=== PATIENT | female | born 1945 | race Caucasian/White ===

== ENCOUNTER → 2017-09-04 11:41 | Outpatient (CLI) | payer MEDICARE, SELFPAY ==
[2017-09-04 12:02] LABS: Basophils % 0.4 % (0.1-2.0); Eosinophils # 0.1 K/mm3 (0.0-0.4); Eosinophils % 1.3 % (0.1-12.0); Hemoglobin 12.6 g/dL (12.2-16.2); Lymphocytes # 1.7 K/mm3 (0.7-4.5); Lymphocytes % 29.6 K/mm3 (10-50); Mean Corpuscular HGB Conc 33.3 g/dL (31.8-35.4); Mean Corpuscular Volume 90.2 fl (81-99); Monocytes # 0.2 K/mm3 (0.1-1.0); Monocytes % 4.4 % (1.7-9.3); Neutrophils # 3.6 K/mm3 (1.8-7.8); Neutrophils % 64.3 % (37.0-80.0); Platelet Count 268 K/mm3 (142-424); Red Blood Count 4.21 M/mm3 (4.20-5.40); Red Cell Distribution Width 13.3 % (11.5-17.5); White Blood Count 5.6 K/mm3 (4.8-10.8)
[2017-09-04 15:07] LABS: Alanine Aminotransferase 26 U/L (12-78); Albumin Level 3.9 gm/dL (3.4-5.0); Albumin/Globulin Ratio 1.3 (1.1-1.8); Alkaline Phosphatase 103 U/L (46-116); Anion Gap 14.1 mEq/L (5-15); Aspartate Amino Transferase 25 U/L (15-37); Bilirubin,Total 1.3 mg/dL (0.2-1.0); Blood Urea Nitrogen 18 mg/dL (7-18); Calcium 9.7 mg/dL (8.5-10.1); Carbon Dioxide 27 mmol/L (21.0-32.0); Chloride 105 mmol/L (98-107); Chol/HDL Ratio 4.3 (1-3.5); Cholesterol 244 mg/dL (140-200); Creatinine,Serum 1.17 mg/dL (0.55-1.02); Estimated Glomerular Filt Rate 46 ml/min (>60); GFR (African American) 55 ML/MIN (>60); Globulin 3.1 gm/dl (1.3-3.2); Glucose 90 mg/dL (74-106); HDL Cholesterol 57 mg/dL (29-89); LDL Cholesterol 159 mg/dL (0-130); Potassium 4.1 mmoL/L (3.5-5.1); Sodium 142 mmol/L (136-145); Triglycerides 140 mg/dL (30-200); VLDL Cholesterol 28 mg/dL (0-40)
== END ==
PROVIDERS: Visit Provider Internal Medicine Adolescent Medicine
DX: E55.9 Vitamin D deficiency, unspecified (principal); E78.5 Hyperlipidemia, unspecified
CPT/HCPCS: 36415; 80053; 80061; 82652; 85025

== ENCOUNTER → 2018-02-17 11:42 | Outpatient (CLI) | payer MEDICARE, SELFPAY ==
[2018-02-17 12:36] LABS: Basophils % 0.5 % (0.1-2.0); Eosinophils # 0.1 K/mm3 (0.0-0.4); Eosinophils % 1.3 % (0.1-12.0); Hematocrit 39.8 % (37.0-47.0); Lymphocytes # 1.4 K/mm3 (0.7-4.5); Lymphocytes % 24.3 K/mm3 (10-50); Mean Corpuscular HGB Conc 32.6 g/dL (31.8-35.4); Mean Platelet Volume 7.8 fl (7.4-10.4); Monocytes # 0.3 K/mm3 (0.1-1.0); Monocytes % 5.2 % (1.7-9.3); Neutrophils % 68.7 % (37.0-80.0); Platelet Count 270 K/mm3 (142-424); Red Blood Count 4.33 M/mm3 (4.20-5.40); Red Cell Distribution Width 13.6 % (11.5-17.5); White Blood Count 5.8 K/mm3 (4.8-10.8)
[2018-02-17 14:16] LABS: Alanine Aminotransferase 27 U/L (12-78); Albumin Level 3.8 gm/dL (3.4-5.0); Albumin/Globulin Ratio 1.2 (1.1-1.8); Alkaline Phosphatase 106 U/L (46-116); Amylase 56 U/L (25-125); Aspartate Amino Transferase 21 U/L (15-37); Bilirubin,Total 1.3 mg/dL (0.2-1.0); Blood Urea Nitrogen 17 mg/dL (7-18); Calcium 9.7 mg/dL (8.5-10.1); Carbon Dioxide 29 mmol/L (21.0-32.0); Chloride 104 mmol/L (98-107); Chol/HDL Ratio 3.9 (1-3.5); Cholesterol 227 mg/dL (140-200); Creatinine,Serum 1.22 mg/dL (0.55-1.02); Estimated Glomerular Filt Rate 43 ml/min (>60); GFR (African American) 52 ML/MIN (>60); Globulin 3.2 gm/dl (1.3-3.2); Glucose 89 mg/dL (74-106); HDL Cholesterol 58 mg/dL (29-89); LDL Cholesterol 145 mg/dL (0-130); Sodium 139 mmol/L (136-145); Triglycerides 122 mg/dL (30-200); VLDL Cholesterol 24 mg/dL (0-40)
== END ==
PROVIDERS: PCP Internal Medicine Adolescent Medicine; Visit Provider Internal Medicine Adolescent Medicine
DX: E78.5 Hyperlipidemia, unspecified (principal); E55.9 Vitamin D deficiency, unspecified; Z87.19 Personal history of other diseases of the digestive system
CPT/HCPCS: 36415; 80053; 80061; 82150; 82652; 85025

== ENCOUNTER → 2018-09-26 12:00 | Outpatient (CLI) | payer MEDICARE, SELFPAY ==
[2018-09-26 12:41] LABS: Basophils % 0.3 % (0.1-2.0); Eosinophils % 0.7 % (0.1-12.0); Hematocrit 38.6 % (37.0-47.0); Hemoglobin 12.9 g/dL (12.2-16.2); Lymphocytes # 1.6 K/mm3 (0.7-4.5); Mean Corpuscular HGB Conc 33.5 g/dL (31.8-35.4); Mean Corpuscular Hemoglobin 29.9 pg (27.0-31.2); Mean Corpuscular Volume 89.2 fl (81-99); Mean Platelet Volume 8.2 fl (7.4-10.4); Monocytes # 0.3 K/mm3 (0.1-1.0); Monocytes % 4.6 % (1.7-9.3); Neutrophils % 67.4 % (37.0-80.0); Platelet Count 257 K/mm3 (142-424); Red Blood Count 4.33 M/mm3 (4.20-5.40); Red Cell Distribution Width 13.3 % (11.5-17.5); White Blood Count 5.9 K/mm3 (4.8-10.8)
[2018-09-26 13:22] LABS: Alanine Aminotransferase 32 U/L (12-78); Albumin Level 3.7 gm/dL (3.4-5.0); Albumin/Globulin Ratio 1.3 (1.1-1.8); Alkaline Phosphatase 113 U/L (46-116); Aspartate Amino Transferase 22 U/L (15-37); Bilirubin,Total 1.4 mg/dL (0.2-1.0); Blood Urea Nitrogen 15 mg/dL (7-18); Calcium 9.5 mg/dL (8.5-10.1); Carbon Dioxide 27 mmol/L (21.0-32.0); Chloride 102 mmol/L (98-107); Chol/HDL Ratio 2.6 (1-3.5); Cholesterol 149 mg/dL (140-200); Creatinine,Serum 1.23 mg/dL (0.55-1.02); Estimated Glomerular Filt Rate 43 ml/min (>60); GFR (African American) 52 ML/MIN (>60); Globulin 2.9 gm/dl (1.3-3.2); Glucose 95 mg/dL (74-106); HDL Cholesterol 57 mg/dL (29-89); LDL Cholesterol 69 mg/dL (0-130); Sodium 140 mmol/L (136-145); Total Protein,Serum 6.6 gm/dL (6.4-8.2); Triglycerides 113 mg/dL (30-200); VLDL Cholesterol 23 mg/dL (0-40)
[2018-09-28 17:25] LABS: Vitamin D 25 Hydroxy 45.2 ng/mL (30.0-100.0)
== END ==
PROVIDERS: Visit Provider Internal Medicine Adolescent Medicine
DX: E78.5 Hyperlipidemia, unspecified (principal); E55.9 Vitamin D deficiency, unspecified
CPT/HCPCS: 36415; 80053; 80061; 82652; 85025

== ENCOUNTER → 2019-01-23 12:15 | Outpatient (CLI) | payer MEDICARE, OTHER, SELFPAY ==
[2019-01-23 13:06] LABS: Basophils % 0.3 % (0.1-2.0); Eosinophils # 0.1 K/mm3 (0.0-0.4); Eosinophils % 1.1 % (0.1-12.0); Hematocrit 38.3 % (37.0-47.0); Lymphocytes # 1.7 K/mm3 (0.7-4.5); Lymphocytes % 27.6 % (10-50); Mean Corpuscular HGB Conc 33.9 g/dL (31.8-35.4); Mean Corpuscular Hemoglobin 31.1 pg (27.0-31.2); Mean Corpuscular Volume 91.7 fl (81-99); Mean Platelet Volume 8.5 fl (7.4-10.4); Monocytes # 0.3 K/mm3 (0.1-1.0); Monocytes % 5.5 % (1.7-9.3); Neutrophils % 65.5 % (37.0-80.0); Platelet Count 228 K/mm3 (142-424); Red Blood Count 4.18 M/mm3 (4.20-5.40); Red Cell Distribution Width 13.5 % (11.5-17.5); White Blood Count 6.2 K/mm3 (4.8-10.8)
[2019-01-23 13:47] LABS: Alanine Aminotransferase 25 U/L (12-78); Albumin Level 3.8 gm/dL (3.4-5.0); Albumin/Globulin Ratio 1.2 (1.1-1.8); Alkaline Phosphatase 101 U/L (46-116); Anion Gap 14.1 mEq/L (5-15); Aspartate Amino Transferase 31 U/L (15-37); Bilirubin,Total 1.2 mg/dL (0.2-1.0); Blood Urea Nitrogen 21 mg/dL (7-18); Calcium 9.8 mg/dL (8.5-10.1); Carbon Dioxide 26 mmol/L (21.0-32.0); Chloride 99 mmol/L (98-107); Chol/HDL Ratio 2.6 (1-3.5); Cholesterol 165 mg/dL (140-200); Creatinine,Serum 1.23 mg/dL (0.55-1.02); Estimated Glomerular Filt Rate 43 ml/min (>60); GFR (African American) 52 ML/MIN (>60); Globulin 3.2 gm/dl (1.3-3.2); Glucose 93 mg/dL (74-106); HDL Cholesterol 63 mg/dL (29-89); LDL Cholesterol 79 mg/dL (0-130); Potassium 4.1 mmoL/L (3.5-5.1); Sodium 135 mmol/L (136-145); Triglycerides 117 mg/dL (30-200); VLDL Cholesterol 23 mg/dL (0-40)
[2019-01-26 14:23] LABS: Vitamin D 25 Hydroxy 42.4 ng/mL (30.0-100.0)
== END ==
PROVIDERS: Visit Provider Internal Medicine Adolescent Medicine
DX: E78.5 Hyperlipidemia, unspecified (principal); E55.9 Vitamin D deficiency, unspecified
CPT/HCPCS: 36415; 80053; 80061; 82652; 85025

== ENCOUNTER 2019-02-17 08:17 | Inpatient (IN) ==
--- NOTE | 2019-02-17 08:33 | Emergency Department Note ---
ED Disposition Clinical Impression: Closed left hip fracture Qualifiers: Encounter type: initial encounter Qualified Code(s): S72.002A - Fracture of unspecified part of neck of left femur, initial encounter for closed fracture Disposition: Admitted As Inpatient Condition on Discharge: Fair - Critical Care Critical Care Time: No Attestation: On , the high probability of a clinically significant, sudden or life threatening deterioration of the following system(s) required my full and direct attention, intervention and personal management. The time I documented below is in addition to time spent performing reported procedures but includes the following listed in this critical care notation. Medical Decision Making - Scotty Inquiry Pt receiving controlled substance: Yes Scotty was queried for this patient: No Reason not queried -: Emergent pt cond-no time Risks and benefits of using a controlled substance: were not discussed with pt by me Vital Signs: 02/17/19 08:18 02/17/19 09:37 02/17/19 10:00 Temperature 98.1 F Temperature Source Oral Pulse Rate Pulse Rate [Right Brachial] 72 98 H Respiratory Rate 18 Blood Pressure Blood Pressure [Right Arm] 168/106 H 154/99 H Blood Pressure Mean [Right Arm] 126 117 Blood Pressure Source [Right Arm] Automatic Cuff Blood Pressure Position [Right Arm] Sitting 02 Sat by Pulse Oximetry 99 94 L Oxygen Delivery Method Room Air Room Air 02/17/19 10:07 02/17/19 10:09 Temperature 98.4 F 98.1 F Temperature Source Oral Oral Pulse Rate 97 H Pulse Rate [Right Brachial] 95 H Respiratory Rate 19 20 Blood Pressure 154/99 H Blood Pressure [Right Arm] 152/94 H Blood Pressure Mean [Right Arm] 113 Blood Pressure Source [Right Arm] Automatic Cuff Blood Pressure Position [Right Arm] Supine 02 Sat by Pulse Oximetry 94 L Oxygen Delivery Method Room Air Room Air - Lab Data Lab Results 02/17/19 08:37: WBC 10.2, RBC 4.78, Hgb 13.9, Hct 45.4, MCV 95.0, MCH 29.1, MCHC 30.7 L, RDW 14.3, Plt Count 287, MPV 8.5, Neut % (Auto) 80.3 H, Lymph % (Auto) 14.0, [place] % (Auto) 4.3, Eos % (Auto) 1.1, Baso % (Auto) 0.3, Neut # (Auto) 8.2 H, Lymph # (Auto) 1.4, [place] # (Auto) 0.4, Eos # (Auto) 0.1, Baso # (Auto) 0.0 02/17/19 08:37: Sodium 137, Potassium 3.9, Chloride 101, Carbon Dioxide 29, Anion Gap 10.9, BUN 13, Creatinine 1.20 H, Estimated Creat Clear 55, Estimated GFR 44 L, Est GFR ( Amer) 53 L, Glucose 104, Calcium 9.8, Total Bilirubin 1.2 H, AST 22, ALT 21, Alkaline Phosphatase 112, Total Protein 7.5, Albumin 3.9, Globulin 3.6 H, Albumin/Globulin Ratio 1.1 02/17/19 09:31: Urine Color Yellow, Urine Appearance Clear, Urine pH 7.5, Ur Specific [place] 1.015, Urine Protein Negative, Urine Glucose (UA) Negative, Urine Ketones Negative, Urine Blood Negative, Urine Nitrate Negative, Urine Bilirubin Negative, Urine Urobilinogen 0.2, Ur Leukocyte Esterase Negative, Urine RBC 5-10, Urine WBC 3-5, Ur Squamous Epith Cells 3-5, Urine Bacteria 1+ Result diagrams: 02/17/19 08:37 02/17/19 08:37 Orders (Tests/Meds): ED MEDICATIONS Generic Name Dose Route Start Last Admin Trade Name Rut PRN Reason Stop Dose Admin Hydrocodone Bitart/Acetaminophen 1 tab 02/17/19 14:56 02/17/19 15:41 Andrews 5/325mg Tablet PO 03/19/19 14:55 1 tab Q4HP PRN Administration Moderate to Severe Pain Enoxaparin Sodium 40 mg 02/18/19 09:00 Lovenox 40mg/0.4ml Syringe SQ 03/20/19 08:59 DAILY MIHAI Hydromorphone HCl 1 mg 02/17/19 09:39 02/17/19 16:38 Dilaudid 2mg/Ml Syringe IV 03/19/19 09:38 1 mg Q4HP PRN Administration Severe Pain Sodium Chloride 1,000 mls @ 75 mls/hr 02/17/19 09:39 02/17/19 20:14 Sod Chlor 0.9% 1000ml Bag IV 03/19/19 09:38 75 mls/hr .[id number] MIHAI Administration Cefazolin Sodium 1 gm/ Sodium 50 mls @ 100 mls/hr 02/17/19 20:00 02/17/19 20:08 Chloride IV 02/18/19 02:29 100 mls/hr Q6H MIHAI Administration Protocol Ondansetron HCl 4 mg 02/17/19 09:39 Zofran 4mg/2ml Vial IV 03/19/19 09:38 Q8HP PRN Nausea Sodium Chloride 10 ml 02/17/19 09:39 Saline Flush 10ml Syringe IV 03/19/19 09:38 NEEDED PRN Maintain IV Site Discontinued Medications Generic Name Dose Route Start Last Admin Trade Name Freq PRN Reason Stop Dose Admin Hydromorphone HCl 1 mg 02/17/19 09:37 02/17/19 09:39 Dilaudid 2mg/Ml Syringe IV 02/17/19 09:38 1 mg ONCE ONE Administration Cefazolin Sodium 1 gm/ Sodium 50 mls @ 100 mls/hr 02/17/19 10:57 02/17/19 12:00 Chloride IV 02/17/19 11:26 100 mls/hr PREOP ONE Administration Protocol Meperidine HCl 25 mg 02/17/19 14:47 Meperidine 25mg/Ml 1ml Syringe IV 02/17/19 16:47 Q5MINP PRN Shivering Morphine Sulfate 4 mg 02/17/19 09:00 02/17/19 09:00 Morphine 4mg/Ml Syringe IV 02/17/19 09:01 4 mg ONCE ONE Administration Ondansetron HCl 4 mg 02/17/19 09:00 02/17/19 09:00 Zofran 4mg/2ml Vial IV 02/17/19 09:01 4 mg ONCE ONE Administration ORDERS Category Date Time Status Consult to Orthopedic Surgery [CONS] Stat Cons 02/17/19 09:39 Ordered - Radiology Data #1 Image(s): Chest, Hip, Femur Image Reviewed: Yes I reviewed the patient's radiology image, Yes I have reviewed radiologist's interpretation Hip: Angulated intertrochanteric fracture. Femur: No other femur fractures identified. Chest: Per radiologist, questionable developing right apical nodule versus summation artifact. PA and lateral chest recommended when able. - ECG Data Tracing #1 EKG interpreted by Phil Richardson MD: Rhythm: sinus Rate: 90 Whitt: normal Ectopy: none Conduction: Right bundle branch block ST Segment Changes: none T Wave Changes: none Q Waves: Inferior and lateral No evidence of acute ischemia or injury - Physician Consults Physician Consulted: Chinmay Time: 09:08 Reason -: Admission Comment/Response: Agrees to admit the patient to the hospital. We discussed the patient's clinical information, including history, exam, laboratory and radiology results and ED course. Per hospital procedure, I will write temporary bridge inpatient orders on the patient. Specific orders requested by the admitting physician: Per orthopedics Additional Consult: Neeru Time: 09:24 Reason -: Orthopedic Eval/Care Comment/Response: NPO. Will do surgery later this afternoon. Admit. General Adult HPI - General Chief complaint: Fall Stated complaint: FALL WITH LEFT HIP INJURY Time Seen by Provider: 02/17/19 08:33 Mode of Arrival: EMS Limitations: No Limitations Description of Symptoms (Recalled from ER Triage Doc. by RN): FALL WITH INJURY TO LEFT FEMUR; PT STATES HER HIP IS PAINFUL BUT NOT BAD HER THIGH - History of Present Illness HPI narrative: Brought in by ambulance for a left hip injury. States that she missed the bottom step this morning causing her to fall and injure her left hip. When she moves her left lower extremity pain radiates up the inside of her left thigh. She denies any other injuries including head injury, neck injury, chest or abdominal injury. No loss of consciousness. Last po - cup of coffee this morning. - Related Data Home Medications Medication Instructions Recorded Confirmed Lisinopril/Hydrochlorothiazide 1 each PO DAILY 02/17/19 02/17/19 [Lisinopril-Hctz 20-12.5 mg Tab] Allergies Allergy/AdvReac Type Severity Reaction Status Date / Time NSAIDS (Non-Steroidal AdvReac Verified 02/17/19 11:10 Anti-Inflamma CORTISONE Allergy Intermediate Rash Uncoded 02/17/19 10:10 [facility] History - Hepatitis A Screen Drug use history?: No High risk sexual behaviors?: No History of sexually transmitted infection?: No Currently employed?: No Childcare worker?: No Do you have indoor plumbing?: Yes Do you have electricity?: Yes Attestation statement:: This patient has been screened for Hepatitis A risk factors. I have reviewed the patient's past medical history: Yes Medical History: Reports:: Cancer (right kidney (nephrectomy), right eye (removed, has prosthetic eye)), Hypertension ROS Obtained: Yes All systems reviewed & no additional complaints - Constitutional Constitutional: Denies fever(s) - Eyes Eyes: Reports as per HPI - Cardiovascular Cardiovascular: Denies chest pain - Respiratory Respiratory: No dyspnea - Gastrointestinal Gastrointestingal: Denies: abdominal pain, vomiting - Musculoskeletal Musculoskeletal: Reports joint pain (left hip) - Neurologic Neurologic: Denies numbness, Denies weakness Physical Exam - General General appearance: alert, in no apparent distress - Head Head exam: atraumatic, normocephalic - Eye Eye exam: Present: other (right eye prosthesis) - ENT ENT exam: Present: mucous membranes moist - Neck Neck exam: Present: normal inspection, trachea midline - Chest Chest inspection: Present: normal inspection, symmetric chest wall rise - Respiratory Respiratory exam: Present: normal lung sounds bilaterally. Absent: respiratory distress - Cardiovascular Cardiovascular exam: Present: regular rate, normal rhythm, normal heart sounds - Abdominal Exam Abdominal exam: Present: soft, normal bowel sounds. Absent: distention - Extremities Exam Extremities exam: Present: normal capillary refill - Neurological Exam Neurological exam: Present: alert, oriented X3 - Psychiatric Psychiatric exam: Present: normal affect, normal mood - Skin Skin exam: Present: warm, dry - Other Other exam information: Laying on right side for x-rays. No obvious deformity. Left hip tenderness. Normal pedal pulses, capillary refill, sensation, and movement of toes.
[2019-02-17 08:50] LABS: Basophils % 0.3 % (0.1-2.0); Eosinophils # 0.1 K/mm3 (0.0-0.4); Eosinophils % 1.1 % (0.1-12.0); Hematocrit 45.4 % (37.0-47.0); Hemoglobin 13.9 g/dL (12.2-16.2); Lymphocytes # 1.4 K/mm3 (0.7-4.5); Mean Corpuscular HGB Conc 30.7 g/dL (31.8-35.4); Mean Platelet Volume 8.5 fl (7.4-10.4); Monocytes # 0.4 K/mm3 (0.1-1.0); Monocytes % 4.3 % (1.7-9.3); Neutrophils # 8.2 K/mm3 (1.8-7.8); Neutrophils % 80.3 % (37.0-80.0); Platelet Count 287 K/mm3 (142-424); Red Blood Count 4.78 M/mm3 (4.20-5.40); Red Cell Distribution Width 14.3 % (11.5-17.5); White Blood Count 10.2 K/mm3 (4.8-10.8)
[2019-02-17 09:07] LABS: Albumin Level 3.9 gm/dL (3.4-5.0); Albumin/Globulin Ratio 1.1 (1.1-1.8); Anion Gap 10.9 mEq/L (5-15); Bilirubin,Total 1.2 mg/dL (0.2-1.0); Calcium 9.8 mg/dL (8.5-10.1); Globulin 3.6 gm/dl (1.3-3.2); Total Protein,Serum 7.5 gm/dL (6.4-8.2)
--- NOTE | 2019-02-17 09:25 | History & Physical Report ---
*Admission Date: 02/17/19 *Chief complaint: fall, hip pain *History of present illness: 73-year-old female with history of hypertension, nephrectomy x1, globectomy x1 who was walking at home early this morning and fell after missing a step. She reports it was dark at home and she missed the last step because she did not see it. She fell landing on her left side and had immediate onset of pain. Denies hitting her head, loss of consciousness, confusion. No chest pain or shortness of breath. Was brought to the ER emergently and found to have a closed left hip fracture. Orthopedics was consulted and patient was taken to the OR for surgical fixation this afternoon. Patient otherwise is independent for ADLs and at her baseline level of health. Family in the room on interview, updated of plan. [facility] History I have reviewed the patient's past medical history: Yes Medical History: Reports:: Cancer (right kidney (nephrectomy), right eye (removed, has prosthetic eye)), Hypertension *Have you ever received a pneumonia vaccine?: No *Have you received a flu vaccine this season?: No - *Social History *Occupational Status:: retired *Travel in the last 8 weeks: None Family Hx:: Hypertension Review of Systems - Review of Systems Review of systems:: pertinent systems reviewed and negative unless documented below - *Neurologic Denies numbness, Denies weakness Meds Home Medications Medication Instructions Recorded Confirmed Type Lisinopril/Hydrochlorothiazide 1 each PO DAILY 02/17/19 02/17/19 History [Lisinopril-Hctz 20-12.5 mg Tab] Allergies Allergy/AdvReac Type Severity Reaction Status Date / Time NSAIDS (Non-Steroidal AdvReac Verified 02/17/19 11:10 Anti-Inflamma CORTISONE Allergy Intermediate Rash Uncoded 02/17/19 10:10 Exam Vital signs and Labs for Last 24 Hours: Temp Pulse Resp BP Pulse Ox 98.1 F 72 18 168/106 H 99 02/17/19 08:18 02/17/19 08:18 02/17/19 08:18 02/17/19 08:18 02/17/19 08:18 Laboratory Results - last 24 hr 02/17/19 08:37: WBC 10.2, RBC 4.78, Hgb 13.9, Hct 45.4, MCV 95.0, MCH 29.1, MCHC 30.7 L, RDW 14.3, Plt Count 287, MPV 8.5, Neut % (Auto) 80.3 H, Lymph % (Auto) 14.0, [place] % (Auto) 4.3, Eos % (Auto) 1.1, Baso % (Auto) 0.3, Neut # (Auto) 8.2 H, Lymph # (Auto) 1.4, [place] # (Auto) 0.4, Eos # (Auto) 0.1, Baso # (Auto) 0.0 02/17/19 08:37: Sodium 137, Potassium 3.9, Chloride 101, Carbon Dioxide 29, Anion Gap 10.9, BUN 13, Creatinine 1.20 H, Estimated Creat Clear 55, Estimated GFR 44 L, Est GFR ( Amer) 53 L, Glucose 104, Calcium 9.8, Total Bilirubin 1.2 H, AST 22, ALT 21, Alkaline Phosphatase 112, Total Protein 7.5, Albumin 3.9, Globulin 3.6 H, Albumin/Globulin Ratio 1.1 I & O for Last 24 hours: Intake & Output 02/14/19 02/15/19 02/16/19 02/17/19 23:59 23:59 23:59 23:59 Weight 83.915 kg - Constitutional no acute distress, obese Comments: elderly - *Routine HEENT Exam Head: Present: normocephalic Eye: Present: EOMI (In left eye, right eye absent), PERRL ENT: Present: mucous membranes moist - *Routine Neck Exam Present: supple. Absent: lymphadenopathy - *Routine Respiratory Exam Present: CTA bilaterally - *Routine Cardiovascular Exam Present: RRR - *Routine Abdominal Exam Present: soft, normoactive bowel sounds. Absent: tenderness - *Routine Extremities Exam Absent: cyanosis, clubbing, edema Comments: Surgical site clean dry and intact with no blood or drainage on bandage. Tender to palpation along surgical wound neurovascularly intact distal to incision - *Routine Skin Exam Present: warm. Absent: rash - *Routine Neurological Exam Present: alert, oriented X3 Assessment and Plan (1) Hypertension Current visit: Yes Status: Chronic Qualifiers: Hypertension type: secondary to other renal disorders Qualified Code(s): I15.1 - Hypertension secondary to other renal disorders; N28.89 - Other specified disorders of kidney and ureter Category: Medical Code(s): I10 - Essential (primary) hypertension Patient has only one kidney. Is hypertensive and on DELL inhibitor at home. Will hold in the perioperative setting. As needed treatment with carvedilol or clonidine in the perioperative setting if blood pressure consistently greater than 180/100. (2) History of nephrectomy Current visit: Yes Status: Chronic Category: Surgical Code(s): Z90.5 - Acquired absence of kidney Status post removal of right kidney many years ago. Has chronic kidney disease stage III with single left kidney. Caution with nephrotoxins. Will monitor kidney function closely while admitted. (3) Closed left hip fracture Current visit: Yes Status: Acute Qualifiers: Encounter type: initial encounter Qualified Code(s): S72.002A - Fracture of unspecified part of neck of left femur, initial encounter for closed fracture Category: Medical Code(s): S72.002A - Fracture of unspecified part of neck of left femur, initial encounter for closed fracture Patient found to have left hip fracture on admission. At this time she has no CKD with creatinine greater than 2, no history of dialysis, no CAD, does not have diabetes or need for insulin. Is otherwise functional and able to ambulate independently without chest pain. Patient's RCRI is 0. METs greater than 4. Hold DELL inhibitor in perioperative setting. Otherwise patient optimized for surgical fixation of left hip fracture. We will plan for postop DVT prophylaxis with Lovenox initially and plan to transition to oral agent either high dose aspirin or NOAC at time of discharge for 6 weeks of DVT prophylaxis (4) CKD (chronic kidney disease), stage III Current visit: Yes Status: Chronic Category: Medical Code(s): N18.3 - Chronic kidney disease, stage 3 (moderate) Suspect secondary to hypertension and single kidney. - Assessment and plan all Dx Assessment and Plan for all problems:: 73-year-old female with CKD 3 who presented with left hip fracture. Surgically fixed by orthopedics already. Tolerated procedure well. Plan for resumption of home medications for blood pressure. Will monitor kidney function given that she has a single kidney and chronic kidney disease 3. Caution with anti- inflammatories and nephrotoxic's due to potential for kidney injury. We will proceed with Lovenox 40 mg daily for DVT prophylaxis with transition to oral treatment at time of discharge. Pain control with oxycodone for now, de- escalate when appropriate.
[2019-02-17 09:38] LABS: Microscopic, Urine URINE MICROSCOPIC (MICROSCOPIC)
--- NOTE | 2019-02-17 09:43 | Pharmacy Consult Notes ---
[facility] Pharmacy VTE Monitoring - Patient Demographics Admission date: 02/17/19 Report Date: 02/17/19 Time: 09:43 Allergies/Adverse Reactions: Patient Allergies CORTISONE Allergy (Unknown, Uncoded 04/23/17 15:08) Height: 1.73 m Weight: 83.915 kg Patient Problems: Current Active Problems Closed left hip fracture (Acute) Hypertension (Chronic) History of nephrectomy (Chronic) CKD (chronic kidney disease), stage III (Chronic) - VTE Risk Labs: VTE Related Lab Results Hgb 13.9 g/dL (12.2-16.2) 02/17/19 08:37 Hct 45.4 % (37.0-47.0) 02/17/19 08:37 Plt Count 287 K/mm3 (142-424) 02/17/19 08:37 BUN 13 mg/dL (7-18) 02/17/19 08:37 Creatinine 1.20 mg/dL (0.55-1.02) H 02/17/19 08:37 Estimated Creat Clear 55 mL/min (50-200) 02/17/19 08:37 - Prophylaxis VTE Prophylaxis Ordered?: Yes Types of VTE Prophylaxis: TEDS Knee High Location of Applied Device: Bilateral Lower Extremeties - VTE Diagnosis Confirmed Treatment or plan recommended: Continue Current Treatment
[2019-02-17 09:44] LABS: Appearance,Urine CLEAR (Clear); Bilirubin,Urine Negative (Negative); Blood, Urine Negative (Negative); Color,Urine YELLOW (Yellow); Glucose,Urine (UA) Negative (Negative); Ketones,Urine Negative (Negative); Leukocyte Esterase,Urine Negative (Negative); PH,Urine 7.5 (5.0-8.5); Protein,Urine Negative (Negative); Specific Gravity, Urine 1.015 (1.005-1.030); Urobilinogen,Urine 0.2 EU/dl (0.2)
[2019-02-17 10:07] LABS: Bacteria,Urine 1+ /lpf
--- NOTE | 2019-02-17 11:09 | Consult Report ---
*Admission Date: 02/17/19 *Reason for consult:: L hip fracture *History of present illness: 73yo F admitted through the ER after a fall earlier this morning at home. She was getting ready to leave the house to go to [place] to see a friend in the hospital, when she missed a step and fell to the ground. She had immediate pain in the left hip and was unable to ambulate. X-rays reveal an intertrochanteric femur fracture. She denies previous injury to or surgery on this hip. 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 No reported shortness of breath or chest pain prior to fall, no dizziness, no LOC. She lives at home with her in a one-level home but there are stairs to enter the home. A ramp is in the process of being built. Review of Systems - Review of Systems Review of systems:: pertinent systems reviewed and negative unless documented below - *Neurologic Denies numbness, Denies weakness [facility] History I have reviewed the patient's past medical history: Yes Medical History: Reports:: Cancer (right kidney (nephrectomy), right eye (removed, has prosthetic eye)), Hypertension Denies:: Diabetes Mellitus Type 2 *Have you ever received a pneumonia vaccine?: Yes *Have you received a flu vaccine this season?: Yes Other Surgeries: Yes: Cholecystectomy - *Social History Smoking Status: Never smoker Alcohol Intake: never *Occupational Status:: retired Housing: house *Travel in the last 8 weeks: None Family Hx:: Cancer, Diabetes, Heart Attack, Hypertension, Stroke Meds Home Medications Medication Instructions Recorded Confirmed Type Lisinopril/Hydrochlorothiazide 1 each PO DAILY 02/17/19 02/17/19 History [Lisinopril-Hctz 20-12.5 mg Tab] Allergies Allergy/AdvReac Type Severity Reaction Status Date / Time CORTISONE Allergy Intermediate Rash Uncoded 02/17/19 10:10 Exam Vital signs and Labs for Last 24 Hours: Temp Pulse Resp BP Pulse Ox 98.1 F 97 H 20 154/99 H 94 L 02/17/19 10:09 02/17/19 10:09 02/17/19 10:09 02/17/19 10:09 02/17/19 10:07 Laboratory Results - last 24 hr 02/17/19 08:37: WBC 10.2, RBC 4.78, Hgb 13.9, Hct 45.4, MCV 95.0, MCH 29.1, MCHC 30.7 L, RDW 14.3, Plt Count 287, MPV 8.5, Neut % (Auto) 80.3 H, Lymph % (Auto) 14.0, [place] % (Auto) 4.3, Eos % (Auto) 1.1, Baso % (Auto) 0.3, Neut # (Auto) 8.2 H, Lymph # (Auto) 1.4, [place] # (Auto) 0.4, Eos # (Auto) 0.1, Baso # (Auto) 0.0 02/17/19 08:37: Sodium 137, Potassium 3.9, Chloride 101, Carbon Dioxide 29, Anion Gap 10.9, BUN 13, Creatinine 1.20 H, Estimated Creat Clear 55, Estimated GFR 44 L, Est GFR ( Amer) 53 L, Glucose 104, Calcium 9.8, Total Bilirubin 1.2 H, AST 22, ALT 21, Alkaline Phosphatase 112, Total Protein 7.5, Albumin 3.9, Globulin 3.6 H, Albumin/Globulin Ratio 1.1 02/17/19 09:31: Urine Color Yellow, Urine Appearance Clear, Urine pH 7.5, Ur Specific [place] 1.015, Urine Protein Negative, Urine Glucose (UA) Negative, Urine Ketones Negative, Urine Blood Negative, Urine Nitrate Negative, Urine Bilirubin Negative, Urine Urobilinogen 0.2, Ur Leukocyte Esterase Negative, Urine RBC 5-10, Urine WBC 3-5, Ur Squamous Epith Cells 3-5, Urine Bacteria 1+ I & O for Last 24 hours: Intake & Output 02/14/19 02/15/19 02/16/19 02/17/19 11:59 11:59 11:59 11:59 Weight 169 lb 5 oz - Constitutional no acute distress, average body habitus - *Routine HEENT Exam Head: Present: normocephalic Eye: Present: implant (prosthetic R eyeball) ENT: Present: mucous membranes moist - *Routine Respiratory Exam Present: CTA bilaterally - *Routine Cardiovascular Exam Present: RRR - *Routine Abdominal Exam Present: soft. Absent: tenderness - *Routine Exam Comments: jimenez in place - *Routine Extremities Exam Comments: LLE shortened, externally rotated and adducted +DF/PF/EHL LLE SILT distally LLE in all distributions palpable pedal pulses LLE, foot warm/well-perfused BLE calves soft, non-tender moderate tenderness over L hip, no skin lesions/ecchymosis/abrasions - *Routine Skin Exam Present: intact - *Routine Neurological Exam Present: alert, oriented X3, moving all extremities, normal tone, hearing grossly intact, normal speech. Absent: sensory deficit, motor deficit, altered mental status Results - Labs Result Diagrams: 02/17/19 08:37 02/17/19 08:37 Labs: Abnormal lab results 02/17/19 02/17/19 Range/Units 08:37 08:37 MCHC 30.7 L (31.8-35.4) g/dL Neut % (Auto) 80.3 H (37.0-80.0) % Neut # (Auto) 8.2 H (1.8-7.8) K/mm3 Creatinine 1.20 H (0.55-1.02) mg/dL Estimated GFR 44 L (>60) ml/min Est GFR ( Amer) 53 L (>60) ML/MIN Total Bilirubin 1.2 H (0.2-1.0) mg/dL Globulin 3.6 H (1.3-3.2) gm/dl H & H 02/17/19 Range/Units 08:37 Hgb 13.9 (12.2-16.2) g/dL Hct 45.4 (37.0-47.0) % All other labs normal. - Diagnostic results Hip x-ray: image reviewed (left intertrochanteric femur fracture) Assessment and Plan (1) Hypertension Current visit: Yes Status: Chronic Qualifiers: Hypertension type: secondary to other renal disorders Qualified Code(s): I15.1 - Hypertension secondary to other renal disorders; N28.89 - Other specified disorders of kidney and ureter Category: Medical Code(s): I10 - Essential (primary) hypertension (2) History of nephrectomy Current visit: Yes Status: Chronic Category: Surgical Code(s): Z90.5 - Acquired absence of kidney (3) Closed left hip fracture Current visit: Yes Status: Acute Qualifiers: Encounter type: initial encounter Qualified Code(s): S72.002A - Fracture of unspecified part of neck of left femur, initial encounter for closed fracture Category: Medical Code(s): S72.002A - Fracture of unspecified part of neck of left femur, initial encounter for closed fracture (4) CKD (chronic kidney disease), stage III Current visit: Yes Status: Chronic Category: Medical Code(s): N18.3 - Chronic kidney disease, stage 3 (moderate) - Assessment and plan all Dx Assessment and Plan for all problems:: 73yo F with L intertrochanteric femur fracture -- I discussed treatment options with the patient and her family and have elected to proceed with IMN today -- patient had coffee early this morning but no solid food -- I discussed the risks of surgery with the patient, including bleeding, infection, non-union/malunion, hardware failure, persistent pain and disability, and the risk of anesthesia. The patient vocalized understanding and provided informed consent for the procedure. -- 1g ancef special effects person to OR
--- NOTE | 2019-02-17 14:46 | Progress Note ---
[facility] Anesthesia Checklist - Structural Data Admitted From: Inpatient Planned Operative Procedure/s: orif l hip Consent for Planned Operative Procedure(s) Verified: Yes - Airway Assessment C-Spine Mobility Assessed: Yes TMJ Mobility Assessed: Yes Dentition: Dentures-good fit - Neurological Assessment Level of Consciousness: Awake, Alert, Appropriate - Anesthesia Plan Anesthesia Risk discussed: Yes Anesthesia Plan: Verified ASA Class: III Anesthesia Type: MAC [facility] History I have reviewed the patient's past medical history: Yes Medical History: Reports:: Cancer (right kidney (nephrectomy), right eye (removed, has prosthetic eye)), Hypertension Denies:: Diabetes Mellitus Type 2 *Have you ever received a pneumonia vaccine?: Yes *Have you received a flu vaccine this season?: Yes Anesthesia experience/problems:: none Other Surgeries: Yes: Cholecystectomy - *Social History Smoking Status: Never smoker Alcohol Intake: never Substance Use Type: denies use *Occupational Status:: retired Housing: house *Travel in the last 8 weeks: None Family Hx:: Cancer, Diabetes, Heart Attack, Hypertension, Stroke
--- NOTE | 2019-02-17 14:47 | Progress Note ---
[facility] Anesthesia Record Part I Intake, IV Amount: 2,000 Estimated blood loss (mL): 100 Urine output (mL): 100 Blood Pressure: 119/78 SaO2: 95 Pulse Rate: 88 Respiratory Rate: 12 Temperature: 99.3 F Patient is:: Awake, Stable Stable to PACU at:: 14:40
--- NOTE | 2019-02-17 14:47 | Progress Note ---
[facility] Anesthesia Record Part II Discharge Time: 15:10 Destination: floor PACU nurse assessment reviewed?: Yes Patient Condition:: Good Anesthesia Complications:: None Swallowing reflex intact?: Yes Cyanosis?: No
--- NOTE | 2019-02-17 15:13 | Operative Note ---
Date of procedure: 02/17/19 Pre-op Diagnosis:: intertrochanteric fracture LEFT femur Post-op Diagnosis:: intertrochanteric fracture LEFT femur Procedure performed:: intramedullary nail (IMN) LEFT femur Surgeon:: Debra Siddiqi MD Student Recruiter(s):: Mary Rivera SURGICAL INSTRUMENTS INSPECTOR:: Mc Siddiqi Anesthesia: MAC, spinal Estimated blood loss (mL): 100 Clinical Note:: 73yo F admitted through the ER after a fall earlier this morning at home. She was getting ready to leave the house to go to [place] to see a friend in the hospital, when she missed a step and fell to the ground. She had immediate pain in the left hip and was unable to ambulate. X-rays reveal an intertrochanteric femur fracture. She denies previous injury to or surgery on this hip. 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 No reported shortness of breath or chest pain prior to fall, no dizziness, no LOC. She lives at home with her in a one-level home but there are stairs to enter the home. A ramp is in the process of being built. I discussed treatment options with the patient and her family and have elected to proceed with IMN today. I discussed the risks of surgery with the patient, including bleeding, infection, non-union/malunion, hardware failure, persistent pain and disability, and the risk of anesthesia. The patient vocalized understanding and provided informed consent for the procedure. Operative findings:: implants: [place] gamma nail system 11 x 180mm nail, 130 deg neck/shaft angle 10.5 x 100mm lag screw 5 x 35mm distal interlocking screw Operative note:: The patient was identified in preoperative holding and the L hip signed by myself. The patient was then taken to the operating room where spinal anesthetic administered and 1g Ancef was infused. The patient was then transferred to the fracture table and sedated intravenously for the procedure. The L leg was secured to the foot plate of the fracture table and the R leg placed in a well-padded leg [place] with the hip in flexion/abduction. Timeout was performed, identifying the correct patient, correct procedure and correct site. Next the L hip fracture was visualized under fluoro and closed reduction performed using the fracture table and a combination of hip adduction, internal rotation and longitudinal traction. Once acceptable reduction was achieved, the L hip was prepped and draped in the usual sterile fashion for a femoral intramedullary nail procedure. The procedure was begun by using a free guide pin held over the L hip to localize the level of the greater trochanter. Approximately 3cm proximal to this, a longitudinal incision was made on the lateral aspect of the hip approximately 3 cm long. The guidepin was placed over the tip of the greater trochanter and fluoroscopy used to confirm the appropriate starting point on manan th AP and lateral views. The guidepin was advanced under power into the proximal femur and a curved awl used to perforate the near cortex, creating an entry hole in the tip of the greater trochanter. A 11 x 180mm (130 degree) nail was advanced until well-seated. The appropriate drill guide was then placed through the side arm on the nail, through which to place the lag screw. A guidepin was threaded from the lateral aspect of the thigh through this drill guide and into the femoral neck. It was advanced proximally until the desired tip apex distance was met on both AP and lateral fluoro views. The measuring tool was used to determine a size 100mm lag screw was needed; the screw path was drilled and a 10.5mm diameter, 100mm long lag screw was advanced into the femoral neck and head. It appeared to be appropriately positioned on both AP and lateral x-ray. Next, the set screw was placed into the top of the nail and secured tightly. To secure the distal aspect of the nail, one distal i nterlocking screw was placed in a static position. Using the appropriate drill sleeve, and measuring off the calibrated drill bit, a 5 x 35mm screw was placed in the distal interlocking hole in the nail. This completed the procedure and the side arm was removed from the nail, final x-rays taken with confirmation of good positioning of both AP and lateral x-rays. All incisions were irrigated copiously with sterile saline and the wounds closed in a layered fashion. The fascia/IT band were closed with 0 Vicryl, followed by 2-0 Vicryl on the subcutaneous tissue, and dawson for the skin. The wounds were dressed with Xeroform, 4 x 4's and tegaderm. The patient was then transferred back to her cart and taken to PACU in good condition. There were no complications during this case. Tourniquet time (min): 0 Condition: stable Disposition: PACU Specimens:: none Complications:: none
[2019-02-18 07:41] LABS: Basophils % 0.1 % (0.1-2.0); Eosinophils # 0.1 K/mm3 (0.0-0.4); Eosinophils % 0.8 % (0.1-12.0); Hematocrit 34.8 % (37.0-47.0); Lymphocytes # 1.8 K/mm3 (0.7-4.5); Lymphocytes % 24.5 % (10-50); Mean Corpuscular HGB Conc 31.9 g/dL (31.8-35.4); Mean Platelet Volume 8.5 fl (7.4-10.4); Monocytes # 0.5 K/mm3 (0.1-1.0); Monocytes % 7.2 % (1.7-9.3); Neutrophils # 4.9 K/mm3 (1.8-7.8); Neutrophils % 67.4 % (37.0-80.0); Platelet Count 223 K/mm3 (142-424); Red Blood Count 3.74 M/mm3 (4.20-5.40); Red Cell Distribution Width 14.5 % (11.5-17.5); White Blood Count 7.2 K/mm3 (4.8-10.8)
[2019-02-18 07:53] LABS: Albumin Level 2.9 gm/dL (3.4-5.0); Albumin/Globulin Ratio 0.9 (1.1-1.8); Anion Gap 8.4 mEq/L (5-15); Bilirubin,Total 1.8 mg/dL (0.2-1.0); Globulin 3.1 gm/dl (1.3-3.2)
[2019-02-18 08:13] LABS: Calcium 8.5 mg/dL (8.5-10.1)
[2019-02-18 09:52] LABS: Hemoglobin 11.1 g/dL (12.2-16.2)
--- NOTE | 2019-02-18 11:48 | Progress Note ---
Internal Medicine - PN: Subj *Date: 02/18/19 *Time: 11:46 Interval history: Ms. Park is doing very well. He may dynamically stable. Tolerating good p.o. intake. Pain well controlled on current regimen. Was up with physical therapy on assessment this morning. Moving very slowly however participating well. Denies chest pain, numbness in her left leg, nausea, vomiting, shortness of breath. Exam Vital signs and Labs for Last 24 Hours: Temp Pulse Resp BP Pulse Ox 98.6 F 85 20 138/66 98 02/18/19 08:00 02/18/19 08:00 02/18/19 08:00 02/18/19 08:00 02/18/19 08:00 Laboratory Results - last 24 hr 02/18/19 07:30: WBC 7.2 D, RBC 3.74 L, Hgb 11.1 L D, Hct 34.8 L, MCV 93.0, MCH 29.6, MCHC 31.9, RDW 14.5, Plt Count 223, MPV 8.5, Neut % (Auto) 67.4, Lymph % (Auto) 24.5, Kerr % (Auto) 7.2, Eos % (Auto) 0.8, Baso % (Auto) 0.1, Neut # (Auto) 4.9, Lymph # (Auto) 1.8, Kerr # (Auto) 0.5, Eos # (Auto) 0.1, Baso # (Auto) 0.0 02/18/19 07:30: Sodium 134 L, Potassium 3.4 L, Chloride 100, Carbon Dioxide 29, Anion Gap 8.4, BUN 11, Creatinine 1.23 H, Estimated Creat Clear 49, Estimated GFR 43 L, Est GFR ( Amer) 52 L, Glucose 108 H, Calcium 8.5 D, Total Bilirubin 1.8 H, AST 48 H D, ALT 44 D, Alkaline Phosphatase 93, Total Protein 6.0 L, Albumin 2.9 L D, Globulin 3.1, Albumin/Globulin Ratio 0.9 L I & O for Last 24 hours: Intake & Output 02/15/19 02/16/19 02/17/19 02/18/19 23:59 23:59 23:59 23:59 Intake Total 2397 / 2397 1416 / 1416 Output Total 100 / 100 600 / 600 Balance 2297 / 2297 816 / 816 Weight 76.799 kg 76.799 kg Narrative: - Constitutional no acute distress, obese Comments: elderly - *Routine HEENT Exam Head: Present: normocephalic Eye: Present: EOMI (In left eye, right eye absent), PERRL ENT: Present: mucous membranes moist - *Routine Neck Exam Present: supple. Absent: lymphadenopathy - *Routine Respiratory Exam Present: CTA bilaterally - *Routine Cardiovascular Exam Present: RRR - *Routine Abdominal Exam Present: soft, normoactive bowel sounds. Absent: tenderness - *Routine Extremities Exam Absent: cyanosis, clubbing, edema Comments: Surgical site clean dry and intact with no blood or drainage on bandage. Tender to palpation along surgical wound neurovascularly intact distal to incision - *Routine Skin Exam Present: warm. Absent: rash - *Routine Neurological Exam Present: alert, oriented X3 Assessment and Plan (1) Hypertension Current visit: Yes Status: Chronic Qualifiers: Hypertension type: secondary to other renal disorders Qualified Code(s): I15.1 - Hypertension secondary to other renal disorders; N28.89 - Other specified disorders of kidney and ureter Category: Medical Code(s): I10 - Essential (primary) hypertension (2) History of nephrectomy Current visit: Yes Status: Chronic Category: Surgical Code(s): Z90.5 - Acquired absence of kidney (3) Closed left hip fracture Current visit: Yes Status: Acute Qualifiers: Encounter type: initial encounter Qualified Code(s): S72.002A - Fracture of unspecified part of neck of left femur, initial encounter for closed fracture Category: Medical Code(s): S72.002A - Fracture of unspecified part of neck of left femur, initial encounter for closed fracture (4) CKD (chronic kidney disease), stage III Current visit: Yes Status: Chronic Category: Medical Code(s): N18.3 - Chronic kidney disease, stage 3 (moderate) - Assessment and plan all Dx Assessment and Plan for all problems:: Overall Ms. Park is doing well. Status post surgical fixation of her left hip fracture. Pending physical therapy recommendations. Anticipate patient will do well at a SNF for rehab. Continue current pain regimen and blood pressure regimen. Will require 6 weeks of postop DVT prophylaxis, currently on Lovenox. Continues to require inpatient management pending placement referral.
--- NOTE | 2019-02-18 11:52 | Progress Note ---
Subjective Date: 02/18/19 Time: 09:00 Principal diagnosis: s/p IMN L femur for IT fx Interval history: Mrs. Pope is doing well this morning. She was out of bed in bedside chair when I saw her, had been transferred during PT evaluation. She reports pain in the hip, but 2 norco helped. Denies dizziness/lightheadedness, no chest pain or shortness of breath. PN: Obj Ex Vital signs: Temp Pulse Resp BP Pulse Ox 98.6 F 85 20 138/66 98 02/18/19 08:00 02/18/19 08:00 02/18/19 08:00 02/18/19 08:00 02/18/19 08:00 - Constitutional no acute distress - Routine HEENT Exam Head: Present: normocephalic Eye: Present: implant ENT: Present: mucous membranes moist - Routine Respiratory Exam Present: CTA bilaterally - Routine Cardiovascular Exam Present: RRR - Routine Abdominal Exam Present: soft. Absent: tenderness - Routine Extremities Exam Comments: L hip dressings c/d/i, no strikethrough +DF/PF/EHL LLE SILT distally LLE L calf soft, compressible, non-tender palpable pedal pulses LLE - Routine Skin Exam Absent: erythema, ecchymosis - Routine Neurological Exam Present: alert, oriented X3, moving all extremities, normal tone, hearing grossly intact, normal speech. Absent: sensory deficit, motor deficit, altered mental status - Urinary Catheter Management Camejo Cath placed during this visit: yes Urethral indwelling: No Insertion date: 02/17/19 Insertion time: 09:16 Progress Note: A&P (1) Hypertension Status: Chronic Current Visit: Yes (2) History of nephrectomy Status: Chronic Current Visit: Yes (3) Closed left hip fracture Status: Acute Current Visit: Yes (4) CKD (chronic kidney disease), stage III Status: Chronic Current Visit: Yes Assessment and Plan for All Diagnoses:: 73yo F POD 1 s/p IMN L femur for intertrochanteric fracture -- WBAT LLE, continue PT/OT -- dressing to be changed on POD 3 -- ice pack L hip PRN -- pain control: norco 1-2 tabs PRN with IV for breakthrough only -- DVT prophy: lovenox 40mg daily -- SCDs BLE -- encourage IS 10x/hr while awake -- dispo planning: anticipate transfer to SNF when approved
--- NOTE | 2019-02-18 18:35 | Electrocardiograph Report ---
APPROVED REPORT Exam: Resting ECG HR:90 bpm ECG Measurements Heart Rate 90 AXES OH 172 P 79 QRSd 122 QRS 73 QT 378 T57 QTc 462 <Conclusion> Normal sinus rhythm Right bundle branch block Abnormal ECG Electronically signed by : Jn Black, 02/18/2019 18:34:49
--- NOTE | 2019-02-19 08:59 | Progress Note ---
Internal Medicine - PN: Subj *Date: 02/19/19 *Time: 08:56 Interval history: 75-year-old status post left hip fracture fixation. Doing well. In bedside chair this morning. Tolerating p.o. intake. Pain controlled on current regimen. No significant complaints. Denies chest pain, shortness of breath, nausea, vomiting. Working with physical therapy. Pending placement at this time. Exam Vital signs and Labs for Last 24 Hours: Temp Pulse Resp BP Pulse Ox 98.1 F 98 H 17 151/80 H 94 L 02/19/19 08:35 02/19/19 08:35 02/19/19 08:35 02/19/19 08:35 02/19/19 08:35 Laboratory Results - last 24 hr 02/18/19 07:30: Hgb 11.1 L D I & O for Last 24 hours: Intake & Output 02/16/19 02/17/19 02/18/19 02/19/19 23:59 23:59 23:59 23:59 Intake Total 2397 / 2397 3720 / 3720 1043 / 1043 Output Total 100 / 100 1800 / 2300 500 / 500 Balance 2297 / 2297 1920 / 1420 543 / 543 Weight 76.799 kg 76.799 kg 76.799 kg Narrative: - Constitutional no acute distress, obese, in bedside chair on exam Comments: elderly - *Routine HEENT Exam Head: Present: normocephalic Eye: Present: EOMI (In left eye, right eye absent), PERRL ENT: Present: mucous membranes moist - *Routine Neck Exam Present: supple. Absent: lymphadenopathy - *Routine Respiratory Exam Present: CTA bilaterally - *Routine Cardiovascular Exam Present: RRR - *Routine Abdominal Exam Present: soft, normoactive bowel sounds. Absent: tenderness - *Routine Extremities Exam Absent: cyanosis, clubbing, edema Comments: Surgical site clean dry and intact with no blood or drainage on bandage. Tender to palpation along surgical wound neurovascularly intact distal to incision - *Routine Skin Exam Present: warm. Absent: rash - *Routine Neurological Exam Present: alert, oriented X3 Assessment and Plan (1) Hypertension Current visit: Yes Status: Chronic Qualifiers: Hypertension type: secondary to other renal disorders Qualified Code(s): I15.1 - Hypertension secondary to other renal disorders; N28.89 - Other specified disorders of kidney and ureter Category: Medical Code(s): I10 - Essential (primary) hypertension (2) History of nephrectomy Current visit: Yes Status: Chronic Category: Surgical Code(s): Z90.5 - Acquired absence of kidney (3) Closed left hip fracture Current visit: Yes Status: Acute Qualifiers: Encounter type: initial encounter Qualified Code(s): S72.002A - Fracture of unspecified part of neck of left femur, initial encounter for closed fracture Category: Medical Code(s): S72.002A - Fracture of unspecified part of neck of left femur, initial encounter for closed fracture (4) CKD (chronic kidney disease), stage III Current visit: Yes Status: Chronic Category: Medical Code(s): N18.3 - Chronic kidney disease, stage 3 (moderate) (5) Obesity (BMI 30.0-34.9) Current visit: Yes Status: Chronic Category: Medical Code(s): E66.9 - Obesity, unspecified Complicates all aspects of care - Assessment and plan all Dx Assessment and Plan for all problems:: 73-year-old status post left hip fracture. Overall patient is doing well. Working with physical therapy. Tolerating p.o. intake. Pain well controlled. Pending placement for physical therapy. Anticipate discharge tomorrow.
--- NOTE | 2019-02-19 12:06 | Progress Note ---
Subjective Date: 02/19/19 Time: 11:00 Principal diagnosis: s/p IMN L femur for IT fx Interval history: The patient is doing well this morning. Pain in L hip present but manageable with medication. Denies numbness or tingling in the LLE. Awaiting SNF placement. PN: Obj Ex Vital signs: Temp Pulse Resp BP Pulse Ox 98.0 F 97 H 17 148/82 H 96 02/19/19 11:34 02/19/19 11:34 02/19/19 11:34 02/19/19 11:34 02/19/19 11:34 - Constitutional no acute distress - Routine HEENT Exam Head: Present: normocephalic Eye: Present: implant ENT: Present: mucous membranes moist - Routine Respiratory Exam Present: CTA bilaterally - Routine Cardiovascular Exam Present: RRR - Routine Abdominal Exam Present: soft. Absent: tenderness - Routine Extremities Exam Comments: L hip dressings c/d/i, no strikethrough +DF/PF/EHL LLE SILT distally LLE L calf soft, compressible, non-tender palpable pedal pulses LLE - Routine Neurological Exam Present: alert, oriented X3, moving all extremities, normal tone, hearing grossly intact, normal speech. Absent: sensory deficit, motor deficit, altered mental status - Urinary Catheter Management Camejo Cath placed during this visit: yes Urethral indwelling: No Insertion date: 02/17/19 Insertion time: 09:16 Progress Note: A&P (1) Hypertension Status: Chronic Current Visit: Yes (2) History of nephrectomy Status: Chronic Current Visit: Yes (3) Closed left hip fracture Status: Acute Current Visit: Yes (4) CKD (chronic kidney disease), stage III Status: Chronic Current Visit: Yes (5) Obesity (BMI 30.0-34.9) Status: Chronic Current Visit: Yes Assessment and Plan for All Diagnoses:: 73yo F POD 2 s/p IMN L femur for intertrochanteric fracture -- WBAT LLE, continue PT/OT -- dressing to be changed tomorrow -- ice pack L hip PRN -- pain control: norco 1-2 tabs PRN with IV for breakthrough only -- DVT prophy: lovenox 40mg daily -- SCDs BLE -- encourage IS 10x/hr while awake -- dispo planning: transfer to SNF when approved; likely tomorrow
--- NOTE | 2019-02-19 22:47 | Discharge Summary ---
General - General Admission date:: 02/17/19 Discharge date: 02/20/19 HPI HPI: 73-year-old female with history of hypertension, nephrectomy x1, globectomy x1 who was walking at home early this morning and fell after missing a step. She reports it was dark at home and she missed the last step because she did not see it. She fell landing on her left side and had immediate onset of pain. Denies hitting her head, loss of consciousness, confusion. No chest pain or shortness of breath. Was brought to the ER emergently and found to have a closed left hip fracture. Orthopedics was consulted and patient was taken to the OR for surgical fixation this afternoon. Patient otherwise is independent for ADLs and at her baseline level of health. Family in the room on interview, updated of plan. Hospital Course Hospital Course: Admitted for comminuted left intertrochanteric fracture with varus angulation of the distal fracture fragment. Ortho consulted admit for surgical fixation. Patient's hip was fixed with good results. Has been able to ambulate with assistance and get up and work with PT. Tolerating p.o. intake. Pain controlled on PRN opiate therapy. Currently on DVT prophylaxis with Lovenox. As patient is progressing well and tolerating oral therapy and working with physical therapy, she is medically stable for discharge home. Remains hemodynamically stable without fever. Transition to Xarelto to complete 6 weeks of DVT prophylaxis. As chest pain, shortness of breath, numbness or tingling in feet. Objective Vital signs: Temp Pulse Resp BP Pulse Ox 98.4 F 95 H 18 136/77 94 L 02/19/19 20:00 02/19/19 20:00 02/19/19 20:00 02/19/19 20:00 02/19/19 20:00 Narrative: - Constitutional no acute distress, obese, in bedside chair on exam Comments: elderly - *Routine HEENT Exam Head: Present: normocephalic Eye: Present: EOMI (In left eye, right eye absent), PERRL ENT: Present: mucous membranes moist - *Routine Neck Exam Present: supple. Absent: lymphadenopathy - *Routine Respiratory Exam Present: CTA bilaterally - *Routine Cardiovascular Exam Present: RRR - *Routine Abdominal Exam Present: soft, normoactive bowel sounds. Absent: tenderness - *Routine Extremities Exam Absent: cyanosis, clubbing, edema Comments: Surgical site clean dry and intact with scant drainage on bandage most proximal. No change in tenderness to palpation along surgical wound neurovascularly intact distal to incision - *Routine Skin Exam Present: warm. Absent: rash - *Routine Neurological Exam Present: alert, oriented X3 DS: Diagnosis - Discharge Diagnosis (1) Hypertension Status: Chronic (2) History of nephrectomy Status: Chronic (3) Closed left hip fracture Status: Acute (4) CKD (chronic kidney disease), stage III Status: Chronic (5) Obesity (BMI 30.0-34.9) Status: Chronic Discharge Plan - Patient Discharge Instructions ACTIVITY: Up with assistance DIET: continue same diet Patient Instructions: Hip Fracture, DI for Hip Fracture, DI for Surgical Site Infection - Follow up Plan Disposition: [facility] Home Medications: Home Medications Medication Instructions Recorded Confirmed Type Fexofenadine HCl [Kaylee 180 mg PO DAILYP PRN 02/18/19 02/18/19 History Allergy] Lisinopril/Hydrochlorothiazide 1 each PO DAILY 02/18/19 02/18/19 History [Lisinopril-Hctz 20-25 mg Tab] Multivit-Min/Iron/Folic/Lutein 1 each PO DAILY 02/18/19 02/18/19 History [Centrum Silver Women Tablet] Hydrocod/Acet 5/325 mg [Chassell 1 - 2 tab PO Q6HP PRN 5 Days #20 02/20/19 Rx 5/325mg tablet] tab Rivaroxaban [Xarelto 10mg tablet] 10 mg PO DAILY 35 Days #35 tab 02/20/19 Rx Prescriptions/Medication Reconciliation: New Sennosides/Docusate Sodium [Senokot-S Tablet] 1 tab PO BID tablet Pantoprazole Sodium [Protonix 40mg tablet] 40 mg PO HS tablet. Rivaroxaban [Xarelto 10mg tablet] 10 mg PO DAILY 35 Days #35 tab Hydrocod/Acet 5/325 mg [Chassell 5/325mg tablet] 1 - 2 tab PO Q6HP PRN 5 Days #20 tab PRN Reason: Moderate To Severe Pain Continued Lisinopril/Hydrochlorothiazide [Lisinopril-Hctz 20-25 mg Tab] 1 each PO DAILY Fexofenadine HCl [Kaylee Allergy] 180 mg PO DAILYP PRN PRN Reason: ALLERGIES Multivit-Min/Iron/Folic/Lutein [Centrum Silver Women Tablet] 1 each PO DAILY - Problem Reconciliation Problems Reviewed?: Yes
[2019-02-20 08:50] VITALS: BP 138/69
== END 2019-02-20 11:16 | DRG 482 ==
LOC: ER 08:17 → 2ND 09:19
PROVIDERS: ADMIT Internal Medicine Adolescent Medicine; ATTEND Internal Medicine Adolescent Medicine
CPT/HCPCS: 36415; 71010; 71045; 73502; 73552; 76000; 80053; 81001; 85025; 93005; 96374; 96375; 97110; 97116; 97162; 97166; 97530; 97535; 99284; C1713; C1776; J2405

== ENCOUNTER → 2019-03-02 13:01 | Outpatient (CLI) | payer MEDICARE, OTHER, SELFPAY ==
--- NOTE | 2019-03-02 13:15 | XR_ITS ---
PROCEDURE: XR HIP LT 2-3V W/PELVIS CLINICAL INDICATION: Hip FX FU follow-up ORIF left hip fracture COMPARISON: XR HIP LT 2-3V W/PELVIS from 02/17/2019 XR HIP LT 2-3V W/PELVIS from 02/17/2019 FINDINGS: Gamma nail with intramedullary bonnie is present stabilizing the intertrochanteric fracture of the left hip with good alignment of the major fracture fragments. Comminuted lesser trochanter fracture is displaced medially. There are mild osteoarthritic changes of the hips and SI joints and facets at the lumbosacral junction IMPRESSION: Good alignment status post ORIF left hip intertrochanteric fracture Dictated by: Angelo Blevins MD 03/02/2019 14:21 Electronically signed by Angelo Blevins MD in [place] 03/02/2019 14:21
== END ==
PROVIDERS: PCP Internal Medicine Adolescent Medicine; Visit Provider Orthopaedic Surgery
DX: S72.002A Fracture of unspecified part of neck of left femur, initial encounter for closed fracture (principal)
CPT/HCPCS: 73502

== ENCOUNTER → 2019-04-06 12:57 | Outpatient (CLI) | payer MEDICARE, OTHER, SELFPAY ==
--- NOTE | 2019-04-06 13:07 | XR_ITS ---
PROCEDURE: XR HIP LT 2-3V W/PELVIS CLINICAL INDICATION: Hip Fx Follow-up hip fracture/ORIF COMPARISON: XR HIP LT 2-3V W/PELVIS from 02/17/2019 XR HIP LT 2-3V W/PELVIS from 03/02/2019 FINDINGS: Gamma nail with short intramedullary bonnie is present stabilizing the intertrochanteric fracture which is in good alignment. Lesser trochanter fragment is displaced medially as before but with decreased displacement and developing callus formation. IMPRESSION: Good alignment status post ORIF left the hip with healing fracture Dictated by: Angelo Blevins MD 04/06/2019 17:43 Electronically signed by Angelo Blevins MD in [place] 04/06/2019 17:43
== END ==
PROVIDERS: PCP Internal Medicine Adolescent Medicine; Visit Provider Orthopaedic Surgery
DX: S72.002A Fracture of unspecified part of neck of left femur, initial encounter for closed fracture (principal)
CPT/HCPCS: 73502

== ENCOUNTER → 2019-05-08 14:05 | Outpatient (CLI) | payer MEDICARE, OTHER, SELFPAY ==
--- NOTE | 2019-05-08 14:11 | XR_ITS ---
PROCEDURE: XR HIP LT 2-3V W/PELVIS CLINICAL INDICATION: Hip FX FU COMPARISON: XR HIP LT 2-3V W/PELVIS from 04/06/2019 FINDINGS: Status post ORIF left intertrochanteric fracture with gamma nail and short intramedullary bonnie. There is good alignment of the main fracture fragments with mild medial displacement of the lesser trochanter. IMPRESSION: Good alignment status post ORIF left hip fracture Dictated by: Angelo Blevins MD 05/08/2019 17:07 Electronically signed by Angelo Blevins MD in [place] 05/08/2019 17:07
== END ==
PROVIDERS: PCP Internal Medicine Adolescent Medicine; Visit Provider Orthopaedic Surgery
DX: S72.002A Fracture of unspecified part of neck of left femur, initial encounter for closed fracture (principal)
CPT/HCPCS: 73502

== ENCOUNTER → 2019-06-05 10:55 | Outpatient (CLI) | payer MEDICARE, OTHER, SELFPAY ==
--- NOTE | 2019-06-05 10:57 | MM_ITS ---
PROCEDURE: MM DIG SCREENING MAMM BI W/CAD CLINICAL INDICATION: SCREENING There is a history of breast cancer patient's maternal grandmother. COMPARISON: DMSB DIG MAMM-SCREEN TORY from 12/10/2012 DMSB DIG MAMM-SCREEN TORY from 11/11/2015 DMSB DIG MAMM-SCREEN TORY W/CAD from 11/30/2016 TECHNIQUE: Standard CC and MLO images and 3D Tomosynthesis was obtained. R2 CAD reviewed. FINDINGS: Scattered fibroglandular densities are seen throughout both breasts. There is faint arterial calcification in each breast. There are few scattered benign-appearing microcalcifications in each breast. There is no suspicious lesion and no suspicious microcalcifications. IMPRESSION: Fibrofatty parenchyma with no suspicious lesions seen BI-RAD Category: 2 Benign Finding(s) FOLLOW-UP: 1YR 1 Year Follow-up (A letter has been sent to the patient regarding results of the study.) Dictated by: Dr. Josias Potts MD 06/08/2019 09:[address] Josias Potts MD in [place] 06/08/2019 09:51
== END ==
PROVIDERS: PCP Internal Medicine Adolescent Medicine; Visit Provider Internal Medicine Adolescent Medicine
DX: Z12.31 Encounter for screening mammogram for malignant neoplasm of breast (principal)
CPT/HCPCS: 77063; 77067

== ENCOUNTER → 2019-06-25 13:29 | Outpatient (CLI) | payer MEDICARE, OTHER, SELFPAY ==
--- NOTE | 2019-06-25 13:33 | XR_ITS ---
PROCEDURE: XR HIP LT 2-3V W/PELVIS CLINICAL INDICATION: Hip FU COMPARISON: XR HIP LT 2-3V W/PELVIS from 05/08/2019 FINDINGS: There is evidence of interval healing of the inter trochanteric fracture of the left femur which has been reduced with intramedullary bonnie and gamma nail. Residual fracture lines are still noted. There is no change in overall bony alignment and positioning. There is no acute fracture. 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 IMPRESSION: Some interval healing of intertrochanteric fracture left femur with no acute bone findings. Dictated by: Doyle Gamboa 06/25/2019 14:21 Electronically signed by Doyle Gamboa in [place] 06/25/2019 14:21
== END ==
PROVIDERS: PCP Internal Medicine Adolescent Medicine; Visit Provider Orthopaedic Surgery
DX: S72.002A Fracture of unspecified part of neck of left femur, initial encounter for closed fracture (principal)
CPT/HCPCS: 73502

== ENCOUNTER → 2019-11-09 12:49 | Outpatient (CLI) | payer MEDICARE, OTHER, SELFPAY ==
--- NOTE | 2019-11-09 12:51 | XR_ITS ---
PROCEDURE: XR HIP LT 2-3V W/PELVIS CLINICAL INDICATION: lt hip pain Left hip pain COMPARISON: XR HIP LT 2-3V W/PELVIS from 06/25/2019 FINDINGS: Prior ORIF with gamma nail and short intramedullary bonnie present. Old intertrochanteric fracture is noted with callus formation and a small amount of heterotopic ossification. No acute fracture or dislocation. Mild degenerative changes are present at the hip. There is mild degenerative change of the SI joint inferiorly on the left. IMPRESSION: Prior ORIF. No change with no acute finding Dictated by: Angelo Blevins MD 11/09/2019 13:42 Electronically signed by Angelo Blevins MD in [place] 11/09/2019 13:42
== END ==
PROVIDERS: PCP Internal Medicine Adolescent Medicine; Visit Provider Orthopaedic Surgery
DX: M25.552 Pain in left hip (principal)
CPT/HCPCS: 73502

== ENCOUNTER → 2020-02-01 12:03 | Outpatient (CLI) | payer MEDICARE, OTHER, SELFPAY ==
[2020-02-01 13:30] LABS: Chloride 101 mmol/L (98-107); Sodium 136 mmol/L (136-145)
[2020-02-01 13:31] LABS: Potassium 4.3 mmoL/L (3.5-5.1)
[2020-02-01 13:33] LABS: Alanine Aminotransferase 16 U/L (12-78); Albumin Level 4.3 g/dl (3.5-5.0); Albumin/Globulin Ratio 1.7 (1.1-1.8); Alkaline Phosphatase 113 U/L (38-126); Anion Gap 12.3 mEq/L (5-15); Aspartate Amino Transferase 30 U/L (14-36); Bilirubin,Total 1.3 mg/dl (0.2-1.3); Blood Urea Nitrogen 17 mg/dl (7-17); Calcium 10.3 mg/dl (8.4-10.2); Carbon Dioxide 27 mmol/L (22.0-30.0); Cholesterol 212 mg/dl (140-200); Estimated Glomerular Filt Rate 54 ml/min (>60); GFR (African American) 66 ML/MIN (>60); Globulin 2.6 g/dL (1.3-3.2); Glucose 98 mg/dl (74-100); Magnesium 2.1 mg/dl (1.6-2.3); Total Protein,Serum 6.9 g/dl (6.3-8.2); Triglycerides 149 mg/dl (30-150); VLDL Cholesterol 30 mg/dL (0-40)
[2020-02-01 13:34] LABS: Chol/HDL Ratio 3.2 (1-3.5); HDL Cholesterol 67 mg/dl (40-60)
[2020-02-01 13:47] LABS: Direct LDL Cholesterol 109.37 mg/dL (100-129)
[2020-02-01 14:04] LABS: Thyroid Stimulating Hormone 1.34 uIU/mL (0.465-4.68)
[2020-02-01 15:47] LABS: Basophils % 0.4 % (0.1-2.0); Eosinophils # 0.1 K/mm3 (0.0-0.4); Eosinophils % 0.7 % (0.1-12.0); Hematocrit 41.5 % (37.0-47.0); Hemoglobin 13.2 g/dL (12.2-16.2); Lymphocytes # 1.6 K/mm3 (0.7-4.5); Lymphocytes % 20.5 % (10-50); Mean Corpuscular HGB Conc 31.9 g/dL (31.8-35.4); Mean Corpuscular Hemoglobin 29.5 pg (27.0-31.2); Mean Corpuscular Volume 92.5 fl (81-99); Mean Platelet Volume 8.3 fl (7.4-10.4); Monocytes # 0.4 K/mm3 (0.1-1.0); Monocytes % 4.7 % (1.7-9.3); Neutrophils # 5.7 K/mm3 (1.8-7.8); Neutrophils % 73.7 % (37.0-80.0); Platelet Count 317 K/mm3 (142-424); Red Blood Count 4.48 M/mm3 (4.20-5.40); Red Cell Distribution Width 13.4 % (11.5-17.5); White Blood Count 7.7 K/mm3 (4.8-10.8)
== END ==
PROVIDERS: Visit Provider Internal Medicine Adolescent Medicine
DX: E78.5 Hyperlipidemia, unspecified (principal); R25.2 Cramp and spasm
CPT/HCPCS: 36415; 80053; 80061; 83735; 84443; 85025

== ENCOUNTER → 2020-02-10 13:34 | Outpatient (CLI) | payer MEDICARE, OTHER, SELFPAY ==
--- NOTE | 2020-02-10 13:36 | XR_ITS ---
PROCEDURE: XR DEXA AXIAL SKELETON CLINICAL HISTORY: OSTEOPENIA DETERMINED BY XRAY COMPARISON: CR BONE3 BONE DENSITOMETRY(HIP:LT SPINE from 12/04/2016 FINDINGS: The right hip BMD is 0.546 with a T-score of -2.7. The left forearm BMD is 0.471 with a T-score of -3.7. The lumbar spine BMD is 0.633 with a T-score of -3.8. Previously the lowest density was in the femoral neck with a T-score -2.2. The bone density is decreased compared to the previous exam IMPRESSION: This patient is considered osteoporotic according to the World Health Organization criteria. Fracture risk is high. Treatment is advised. Based on these results a follow-up exam is recommended in 1 year. Dictated by: Angelo Blevins MD 02/11/2020 11:37 Angelo Blevins MD in [place] 02/11/2020 11:37
== END ==
PROVIDERS: PCP Internal Medicine Adolescent Medicine; Visit Provider Internal Medicine Adolescent Medicine
DX: M85.89 Other specified disorders of bone density and structure, multiple sites (principal)
CPT/HCPCS: 77080

== ENCOUNTER → 2020-08-23 15:10 | Outpatient (CLI) | payer MEDICARE, OTHER, SELFPAY ==
--- NOTE | 2020-08-23 15:14 | MM_ITS ---
PROCEDURE: MM DIG SCREENING MAMM BI W/CAD Digital Breast Tomosynthesis Included CLINICAL INDICATION: SCREENING There is a history of breast cancer in the patient's maternal grandmother. COMPARISON: MG DMSB DIG MAMM-SCREEN TORY from 11/11/2015 MG DMSB DIG MAMM-SCREEN TORY W/CAD from 11/30/2016 MG MM DIG SCREENING MAMM BI W/CAD from 06/05/2019 TECHNIQUE: Standard CC and MLO images and 3D Tomosynthesis was obtained. R2 CAD reviewed. FINDINGS: Scattered fibroglandular densities are seen in both breasts. There is a mole marker left breast. There are few benign-appearing microcalcifications in each breast and there is faint arterial calcification in each breast. This lesion in either breast and no suspicious microcalcifications. IMPRESSION: Fibrofatty parenchyma with no suspicious lesions seen BI-RAD Category: 2 Benign Finding(s) FOLLOW-UP: 1YR 1 Year Follow-up (A letter has been sent to the patient regarding results of the study.) Dictated by: Dr. Josias Potts MD 08/25/2020 09:02 Dr. Josias Potts MD in [place] 08/25/2020 09:02
== END ==
PROVIDERS: PCP Internal Medicine Adolescent Medicine; Visit Provider Nurse Practitioner Family
DX: Z12.31 Encounter for screening mammogram for malignant neoplasm of breast (principal)
CPT/HCPCS: 77063; 77067

== ENCOUNTER → 2020-08-30 10:49 | Outpatient (POV) | payer MEDICARE, OTHER, SELFPAY | PROVIDERS: Visit Provider Dermatology | DX: Z00.00 Encounter for general adult medical examination without abnormal findings (principal) ==

== ENCOUNTER → 2020-09-13 14:46 | Outpatient (CLI) | payer MEDICARE, OTHER, SELFPAY ==
--- NOTE | 2020-09-13 15:06 | XR_ITS ---
PROCEDURE: XR CHEST 2V CLINICAL HISTORY: renal cell cancer COMPARISON: CR CXR CHEST(2 VIEWS-NOT PORTABLE) from 11/22/2015 CR CXR CHEST(2 VIEWS-NOT PORTABLE) from 07/09/2016 CR XR CHEST PORTABLE from 02/17/2019 FINDINGS: The cardiomediastinal silhouette and pulmonary vascularity are within normal limits. The right upper lobe density is less distinct on the current study, likely scarring. The lungs are otherwise clear without infiltrates, suspicious nodules, or pleural effusions. Multiple bilateral calcified lymph nodes are noted. Degenerative changes of the visualized thoracic spine are noted. IMPRESSION: No acute cardiopulmonary process. Dictated by: Shazia Sarah 09/13/2020 16:56 Shazia Sarah in [place] 09/13/2020 16:56
[2020-09-13 15:36] LABS: Alanine Aminotransferase 18 U/L (12-78); Albumin Level 4.9 g/dl (3.5-5.0); Albumin/Globulin Ratio 1.8 (1.1-1.8); Alkaline Phosphatase 141 U/L (38-126); Aspartate Amino Transferase 54 U/L (14-36); Bilirubin,Total 1.2 mg/dl (0.2-1.3); Blood Urea Nitrogen 19 mg/dl (7-17); Calcium 10.3 mg/dl (8.4-10.2); Carbon Dioxide 28 mmol/L (22.0-30.0); Chloride 102 mmol/L (98-107); Estimated Glomerular Filt Rate 54 ml/min (>60); GFR (African American) 66 ML/MIN (>60); Globulin 2.8 g/dL (1.3-3.2); Glucose 93 mg/dl (74-100); Sodium 136 mmol/L (136-145); Total Protein,Serum 7.7 g/dl (6.3-8.2)
== END ==
LOC: LAB 14:46 → RAD 15:04
PROVIDERS: Visit Provider Urology
DX: C64.9 Malignant neoplasm of unspecified kidney, except renal pelvis (principal)
CPT/HCPCS: 36415; 71046; 80053

== ENCOUNTER → 2020-09-20 09:36 | Outpatient (POV) | payer MEDICARE, OTHER, SELFPAY | PROVIDERS: Visit Provider Dermatology | DX: Z00.00 Encounter for general adult medical examination without abnormal findings (principal) ==

== ENCOUNTER → 2020-11-10 12:25 | Outpatient (CLI) | payer MEDICARE, OTHER, SELFPAY ==
[2020-11-10 12:43] LABS: Basophils # 0.1 K/mm3 (0-0.2); Basophils % 0.6 % (0.1-2.0); Eosinophils # 0.1 K/mm3 (0.0-0.4); Eosinophils % 1.7 % (0.1-12.0); Hematocrit 41.7 % (37.0-47.0); Hemoglobin 14.2 g/dL (12.2-16.2); Lymphocytes % 24.2 % (10-50); Mean Corpuscular HGB Conc 34.1 g/dL (31.8-35.4); Mean Corpuscular Hemoglobin 30.2 pg (27.0-31.2); Mean Corpuscular Volume 88.6 fl (81-99); Mean Platelet Volume 7.9 fl (7.4-10.4); Monocytes # 0.3 K/mm3 (0.1-1.0); Monocytes % 4.1 % (1.7-9.3); Neutrophils # 5.7 K/mm3 (1.8-7.8); Neutrophils % 69.4 % (37.0-80.0); Platelet Count 321 K/mm3 (142-424); Red Blood Count 4.71 M/mm3 (4.20-5.40); Red Cell Distribution Width 14.1 % (11.5-17.5); White Blood Count 8.2 K/mm3 (4.8-10.8)
[2020-11-10 13:13] LABS: Chloride 101 mmol/L (98-107); Potassium 4.5 mmoL/L (3.5-5.1); Sodium 138 mmol/L (136-145)
[2020-11-10 13:16] LABS: Alanine Aminotransferase 21 U/L (12-78); Albumin Level 4.7 g/dl (3.5-5.0); Albumin/Globulin Ratio 1.6 (1.1-1.8); Alkaline Phosphatase 125 U/L (38-126); Anion Gap 13.5 mEq/L (5-15); Aspartate Amino Transferase 37 U/L (14-36); Bilirubin,Total 1.3 mg/dl (0.2-1.3); Blood Urea Nitrogen 18 mg/dl (7-17); Calcium 10.5 mg/dl (8.4-10.2); Carbon Dioxide 28 mmol/L (22.0-30.0); Estimated Glomerular Filt Rate 48 ml/min (>60); GFR (African American) 59 ML/MIN (>60); Glucose 100 mg/dl (74-100); Total Protein,Serum 7.7 g/dl (6.3-8.2)
[2020-11-10 13:17] LABS: Magnesium 1.9 mg/dl (1.6-2.3)
[2020-11-10 13:52] LABS: Ferritin 75.3 ng/ml (11.1-264)
== END ==
PROVIDERS: Visit Provider Internal Medicine Adolescent Medicine
DX: I10 Essential (primary) hypertension (principal); R25.2 Cramp and spasm; R74.8 Abnormal levels of other serum enzymes
CPT/HCPCS: 36415; 80053; 82728; 83735; 85025

== ENCOUNTER → 2021-09-14 14:28 | Outpatient (CLI) | payer MEDICARE, OTHER, SELFPAY ==
--- NOTE | 2021-09-14 14:36 | XR_ITS ---
FINAL REPORT CLINICAL HISTORY: history of renal cell cancer in 2013 FINDINGS: Two views of the chest were obtained. The heart size and pulmonary vascularity are within normal limits. The mediastinum is normal. There is mild atelectasis or scarring in the lung bases. There is no pneumothorax. There are moderate degenerative changes in the thoracic spine. IMPRESSION: Mild atelectasis or scarring in the lung bases. Reviewed, Interpreted and Dictated by Pedro De La O III, MD Transcribed by Yuridia Eldridge Authenticated by Pedro De La O III, MD on 09/14/2021 03:25:40 PM [facility]
[2021-09-14 16:07] LABS: Chloride 97 mmol/L (98-107)
[2021-09-14 16:08] LABS: Potassium 3.9 mmoL/L (3.5-5.1); Sodium 132 mmol/L (136-145)
[2021-09-14 16:10] LABS: Alanine Aminotransferase 18 U/L (12-78); Anion Gap 10.9 mEq/L (5-15); Aspartate Amino Transferase 30 U/L (14-36); Blood Urea Nitrogen 22 mg/dl (7-17); Carbon Dioxide 28 mmol/L (22.0-30.0); Estimated Glomerular Filt Rate 48 ml/min (>60); GFR (African American) 59 ML/MIN (>60)
[2021-09-14 16:11] LABS: Albumin Level 4.3 g/dl (3.5-5.0); Albumin/Globulin Ratio 1.7 (1.1-1.8); Alkaline Phosphatase 116 U/L (38-126); Bilirubin,Total 1.2 mg/dl (0.2-1.3); Calcium 11.1 mg/dl (8.4-10.2); Globulin 2.5 g/dL (1.3-3.2); Glucose 104 mg/dl (74-100); Total Protein,Serum 6.8 g/dl (6.3-8.2)
== END ==
PROVIDERS: PCP Internal Medicine Adolescent Medicine; Visit Provider Urology
DX: Z85.528 Personal history of other malignant neoplasm of kidney (principal)
CPT/HCPCS: 36415; 71046; 80053

== ENCOUNTER → 2021-10-23 10:06 | Outpatient (CLI) | payer MEDICARE, OTHER, SELFPAY ==
--- NOTE | 2021-10-23 10:10 | CT_ITS ---
FINAL REPORT CLINICAL HISTORY: LEFT LOWER QUADRANT ABDOMINAL PAIN FINDINGS: Axial CT images of the abdomen and pelvis were obtained without intravenous contrast. Oral contrast was administered. Coronal reformatted images were also obtained.This study was performed with techniques to keep radiation doses as low as reasonably achievable (ALARA). Individualized dose reduction techniques using automated exposure control or adjustment of mA and/or kV according to the patient's size were employed. Abdomen: There is mild bibasilar atelectasis or scarring. There is no evidence of renal stone or hydronephrosis. There is an 8 mm probable cyst in the left liver dome. The patient is status post cholecystectomy and right nephrectomy. The spleen and pancreas have an unremarkable, unenhanced appearance. No mass or adenopathy is seen. No inflammatory process is identified. A gastric diverticulum is noted. There is widespread colonic diverticulosis without diverticulitis. There are moderate vascular calcifications noted. Pelvis: Images of the pelvis reveal no evidence of ureteral dilation or ureteral stone.No mass or abnormal fluid collection is identified. The appendix is normal. There are postoperative changes to the left proximal femur. IMPRESSION: Colonic diverticulosis without diverticulitis. No mass or inflammatory process. Postsurgical changes as above. Reviewed, Interpreted and Dictated by Pedro De La O III, MD Transcribed by Yuridia Eldridge Authenticated and [facility]
== END ==
PROVIDERS: PCP Internal Medicine Adolescent Medicine; Visit Provider Internal Medicine Adolescent Medicine
DX: R10.32 Left lower quadrant pain (principal)
CPT/HCPCS: 74176

== ENCOUNTER → 2021-10-26 13:38 | Outpatient (CLI) | payer MEDICARE, OTHER, SELFPAY ==
[2021-10-26 13:55] LABS: Microscopic, Urine URINE MICROSCOPIC (MICROSCOPIC)
[2021-10-26 15:56] LABS: Appearance,Urine CLEAR (Clear); Bilirubin,Urine Negative (Negative); Blood, Urine TRACE-L (Negative); Color,Urine YELLOW (Yellow); Glucose,Urine (UA) Negative (Negative); Ketones,Urine Negative (Negative); Leukocyte Esterase,Urine 3+ (Negative); Nitrate,Urine Negative (Negative); Protein,Urine Negative (Negative); Urobilinogen,Urine 0.2 EU/dl (0.2)
[2021-10-26 17:02] LABS: RBC,Urine Occasional #/hpf (0-3)
== END ==
PROVIDERS: PCP Internal Medicine Adolescent Medicine; Visit Provider Nurse Practitioner Family
DX: R30.0 Dysuria (principal); N94.9 Unspecified condition associated with female genital organs and menstrual cycle
CPT/HCPCS: 81001; 87086

== ENCOUNTER → 2021-12-15 13:18 | Outpatient (CLI) | payer MEDICARE, OTHER, SELFPAY ==
--- NOTE | 2021-12-15 13:23 | MM_ITS ---
PROCEDURE INFORMATION: Exam: MG Bilateral Screening 3D Mammography Exam date and time: 12/15/2021 1:26 PM Age: 76 years old Clinical indication: Screening examination TECHNIQUE: Imaging protocol: Bilateral Screening tomosynthesis and 2D mammography including computer-aided detection (CAD) when performed. COMPARISON: 1. MG MM DIG SCREENING MAMM BI W/CAD 08/23/2020 3:19 PM 2. MG MM DIG SCREENING MAMM BI W/CAD 06/05/2019 11:04 AM FINDINGS: MAMMOGRAPHY: Breast composition: There are scattered areas of fibroglandular density. Mass: None. Architectural distortion: None. Calcifications: No suspicious calcifications. Asymmetric density: None. Skin thickening: None. Axillary adenopathy: None. IMPRESSION: No mammographic evidence of malignancy. Annual screening is recommended unless otherwise clinically indicated. ASSESSMENT: BI-RADS Category 1: Negative
== END ==
PROVIDERS: PCP Internal Medicine Adolescent Medicine; Visit Provider Internal Medicine Adolescent Medicine
DX: Z12.31 Encounter for screening mammogram for malignant neoplasm of breast (principal)
CPT/HCPCS: 77063; 77067

== ENCOUNTER → 2023-02-27 14:45 | Outpatient (CLI) | payer MEDICARE, OTHER, SELFPAY ==
--- NOTE | 2023-02-27 14:51 | XR_ITS ---
FINAL REPORT CLINICAL HISTORY: LEFT FOOT PAIN COMPARISON: None FINDINGS: LEFT FOOT: Three views of the left foot were obtained. There is no acute fracture or dislocation. There is no soft tissue abnormality. A plantar calcaneal spur is present. There is a moderate hallux valgus deformity and moderate degenerative change present in the midfoot. IMPRESSION: Moderate degenerative change as described. No acute bony abnormality. Reviewed, Interpreted and Dictated by Pedro De La O III, MD Transcribed by Shelbie Jacome Authenticated and [facility]
== END ==
PROVIDERS: PCP Internal Medicine Adolescent Medicine; Visit Provider Physician Assistant
DX: M79.672 Pain in left foot (principal)
CPT/HCPCS: 73630